=== PATIENT | male | born 1995 | race Two or more races ===

== ENCOUNTER 2018-04-08 23:25 | Emergency (ER) | payer OTHER ==
[~2018-04-08] VITALS: Ht 167.6 cm; Wt 61.2 kg
[2018-04-09] MEDS ORDERED: ONDANSETRON HCL 4 MG/2 ML VIAL IV ONE (00:15)
[2018-04-09] MEDS ORDERED: MORPHINE SULFATE 4 MG/ML SYR/VIAL IV ONE (00:15)
[2018-04-09 00:44] VITALS: BP 118/74
== END 2018-04-09 02:03 | disposition home or self-care (01) ==
LOC: ER 23:25 → EEVIPCON 23:25 → ER 04-09 02:03
DX: K40.90 Unilateral inguinal hernia, without obstruction or gangrene, not specified as recurrent (principal)
CPT/HCPCS: 74176; 96374; 96375; 99284; J2270; J2405